=== PATIENT | female | born 1950 | race Asian ===

== ENCOUNTER 2017-03-26 06:28 | Day surgery (SDC) | payer OTHER ==
[~2017-03-26] VITALS: Ht 152.4 cm; Wt 59.0 kg
[~2017-03-26 06:28] MED LIST: CARBAMAZEPINE200 MG PO; ENALAPRIL MALEA20 MG PO; GLYBURIDE5 MG PO; METFORMIN HCL850 MG PO; METOPROLOL SUCC50 M2 PO; ZOCOR20 MG PO
[2017-03-26 06:45] VITALS: BP 168/76
[2017-03-26 10:02] VITALS: BP 152/72
== END 2017-03-26 10:15 | disposition home or self-care (01) ==
LOC: GI 06:28 → OR 07:30 → GI 10:15
PROVIDERS: Internal Medicine Gastroenterology
PROC: 0DBH8ZZ Excision of Cecum, Via Natural or Artificial Opening Endoscopic (ICD-10-PCS; principal; 2017-03-26 07:30)
PROC: 0DBH8ZZ Excision of Cecum, Via Natural or Artificial Opening Endoscopic (ICD-10-PCS; 2017-03-26 07:30)
DX: Z12.11 Encounter for screening for malignant neoplasm of colon (principal); D12.0 Benign neoplasm of cecum; I10 Essential (primary) hypertension; E11.9 Type 2 diabetes mellitus without complications; Z68.26 Body mass index [BMI] 26.0-26.9, adult
CPT/HCPCS: 45378; J1200; J1610; J2250; J2310; J3010; J3490

== ENCOUNTER 2019-03-05 10:01 | Emergency (ER) | payer OTHER ==
[~2019-03-05] VITALS: Ht 152.4 cm; Wt 60.8 kg
[2019-03-05 10:10] VITALS: Ht 152.4 cm; Wt 60.8 kg
[2019-03-05 12:48] VITALS: BP 176/68
== END 2019-03-05 12:48 | disposition home or self-care (01) ==
LOC: ED 10:01
DX: S93.402A Sprain of unspecified ligament of left ankle, initial encounter (principal); I10 Essential (primary) hypertension; E11.9 Type 2 diabetes mellitus without complications; E78.00 Pure hypercholesterolemia, unspecified; W01.0XXA Fall on same level from slipping, tripping and stumbling without subsequent striking against object, initial encounter; Y93.89 Activity, other specified; Y92.89 Other specified places as the place of occurrence of the external cause; Y99.8 Other external cause status

== ENCOUNTER 2019-08-30 08:04 | Inpatient (IN) | payer OTHER ==
[~2019-08-30] VITALS: Ht 160 cm; Wt 61.3 kg
[2019-08-30 09:16] LABS: ALKALINE PHOSPHATASE 106 U/L (46-116); ALT/SGPT 22 U/L (14-59); AST/SGOT 27 U/L (15-37); BILIRUBIN TOTAL 0.6 mg/dL (0.20-1.00); CALCIUM 8.6 mg/dL (8.5-10.1); CARBON DIOXIDE 21.9 mmol/L (21-32); CHLORIDE SERUM 101 mmol/L (98-107); CREATININE SERUM 0.9 mg/dL (0.6-1.0); GFR1 > 60 mL/min; GLUCOSE SERUM 174 mg/dL (74-106); POTASSIUM SERUM 5.5 mmol/L (3.5-5.1); SODIUM SERUM 133 mmol/L (136-145)
[2019-08-30 09:20] LABS: ALBUMIN 3.1 g/dL (3.4-5.0)
[2019-08-30 09:50] LABS: RED CELL DISTRIBUTION WIDTH 18.7 % (11.5-14.5)
[2019-08-30 09:51] LABS: PLATELET COUNT 194 x10^3mcL (130-400)
[2019-08-30 10:30] LABS: BAND NEUTROPHIL 6 % (0-10); BASOPHIL 0 % (0-2); METAMYELOCTE 1 % (0-2); MONOCYTE 6 % (0-7); SEGMENTED NEUTROPHILS 75 % (37-75)
[2019-08-30 10:31] LABS: PLATELET MORPHOLOGY GIANT PLATELET SEEN; ovalocyte/elliptocyte 1+; rbc morphology (normal/abnorm) ABNORMAL (NORMAL)
[2019-08-30 11:08] LABS: IRON 46 ug/dL (50-170); TOTAL IRON BINDING CAPACITY 422 ug/dL (250-450)
[2019-08-30 12:14] LABS: MAGNESIUM 1.8 mg/dL (1.8-2.4); PHOSPHOROUS 4.3 mg/dL (2.5-4.9)
[2019-08-30 12:21] LABS: CHOLESTEROL/HDL RATIO 2.2
[2019-08-30 13:26] VITALS: BP 158/66
[2019-08-30 13:40] VITALS: Ht 160 cm; Wt 61.3 kg
[2019-08-30 16:24] VITALS: BP 154/63
[2019-08-30 19:58] VITALS: BP 156/56
[2019-08-31 05:41] VITALS: BP 141/53
[2019-08-31 06:28] LABS: PLATELET COUNT 187 x10^3mcL (130-400)
[2019-08-31 06:55] LABS: CALCIUM 8.7 mg/dL (8.5-10.1); CARBON DIOXIDE 22.8 mmol/L (21-32); CREATININE SERUM 1.2 mg/dL (0.6-1.0); POTASSIUM SERUM 4.6 mmol/L (3.5-5.1)
[2019-08-31 07:21] VITALS: BP 134/60
[2019-08-31 07:59] LABS: RED CELL DISTRIBUTION WIDTH 19.4 % (11.5-14.5)
[2019-08-31 11:29] VITALS: BP 159/69
[2019-08-31 11:46] LABS: BAND NEUTROPHIL 5 % (0-10); MONOCYTE 7 % (0-7); SEGMENTED NEUTROPHILS 74 % (37-75)
[2019-08-31 11:47] LABS: rbc morphology (normal/abnorm) ABNORMAL (NORMAL)
[2019-08-31 11:48] LABS: ovalocyte/elliptocyte 1+
[2019-08-31 11:49] LABS: PLATELET MORPHOLOGY LARGE PLATELET SEEN
[2019-08-31 15:32] VITALS: BP 150/63
== END 2019-08-31 20:00 | disposition left against medical advice (07) | DRG 199 ==
LOC: ED 08:04 → DU 11:27
PROVIDERS: Emergency Medicine; ADMIT Internal Medicine
DX: I16.0 Hypertensive urgency (principal); I50.33 Acute on chronic diastolic (congestive) heart failure; E11.65 Type 2 diabetes mellitus with hyperglycemia; E87.1 Hypo-osmolality and hyponatremia; I11.0 Hypertensive heart disease with heart failure; E87.5 Hyperkalemia; D64.9 Anemia, unspecified; E78.00 Pure hypercholesterolemia, unspecified; E78.5 Hyperlipidemia, unspecified; Z53.29 Procedure and treatment not carried out because of patient's decision for other reasons; Z83.3 Family history of diabetes mellitus; Z82.49 Family history of ischemic heart disease and other diseases of the circulatory system; Z79.899 Other long term (current) drug therapy
CPT/HCPCS: 82962; 83880; G0378; J1940; J2270; J2405; J2916; Q0092

== ENCOUNTER 2020-05-13 18:51 | Inpatient (IN) | payer OTHER ==
[~2020-05-13] VITALS: Ht 152.4 cm; Wt 68.0 kg
[2020-05-13 19:17] VITALS: Ht 152.4 cm; Wt 68.0 kg
[2020-05-13 20:19] LABS: BASOPHIL % 0.4 % (0.2-1.3); PLATELET COUNT 150 x10^3mcL (179-408)
[2020-05-13 20:28] LABS: RED CELL DISTRIBUTION WIDTH 19.6 % (12.3-17.7)
[2020-05-13 20:45] LABS: BILIRUBIN TOTAL 0.39 mg/dL (0.20-1.00); CARBON DIOXIDE 17.2 mmol/L (21-32); CREATININE SERUM 1.4 mg/dL (0.6-1.0)
[2020-05-13 20:46] LABS: ALBUMIN 3.3 g/dL (3.4-5.0); TOTAL PROTEIN, SERUM 8.3 g/dL (6.4-8.2)
[2020-05-13 20:47] LABS: POTASSIUM SERUM 6.4 mmol/L (3.5-5.1)
[2020-05-13 20:54] LABS: ovalocyte/elliptocyte 1+; rbc morphology (normal/abnorm) ABNORMAL (NORMAL)
[2020-05-14 06:07] LABS: BASOPHIL % 0.6 % (0.2-1.3); PLATELET COUNT 139 x10^3mcL (179-408)
[2020-05-14 06:27] LABS: BILIRUBIN TOTAL 0.71 mg/dL (0.20-1.00); CALCIUM 9.5 mg/dL (8.5-10.1); CARBON DIOXIDE 20.6 mmol/L (21-32); CREATININE SERUM 1.3 mg/dL (0.6-1.0); MAGNESIUM 1.9 mg/dL (1.8-2.4)
[2020-05-14 06:31] LABS: ALBUMIN 3.2 g/dL (3.4-5.0)
[2020-05-14 06:33] LABS: POTASSIUM SERUM 5.7 mmol/L (3.5-5.1)
[2020-05-14 06:40] LABS: RED CELL DISTRIBUTION WIDTH 22.2 % (12.3-17.7)
[2020-05-14 10:34] LABS: rbc morphology (normal/abnorm) NORMAL (NORMAL)
[2020-05-14 13:33] LABS: IRON 27 ug/dL (50-170); TOTAL IRON BINDING CAPACITY 449 ug/dL (250-450)
[2020-05-15 04:44] VITALS: BP 159/78
[2020-05-15 05:28] VITALS: BP 159/78
[2020-05-15 08:33] VITALS: BP 148/60
[2020-05-15 11:52] VITALS: BP 147/54
[2020-05-15 15:15] LABS: BASOPHIL % 0.6 % (0.2-1.3); PLATELET COUNT 116 x10^3mcL (179-408); RED CELL DISTRIBUTION WIDTH 24.7 % (12.3-17.7)
[2020-05-15 15:22] LABS: BILIRUBIN TOTAL 0.6 mg/dL (0.20-1.00); CALCIUM 7.9 mg/dL (8.5-10.1); CARBON DIOXIDE 22.8 mmol/L (21-32); CREATININE SERUM 1.2 mg/dL (0.6-1.0); MAGNESIUM 1.4 mg/dL (1.8-2.4); POTASSIUM SERUM 4.5 mmol/L (3.5-5.1); TOTAL PROTEIN, SERUM 6.8 g/dL (6.4-8.2)
[2020-05-15 15:26] LABS: ALBUMIN 2.7 g/dL (3.4-5.0)
[2020-05-15 16:46] VITALS: BP 134/57
[2020-05-15 17:55] LABS: ovalocyte/elliptocyte 2+; rbc morphology (normal/abnorm) ABNORMAL (NORMAL)
[2020-05-15 17:56] LABS: tear drop cell (dacryocyte) 1+
[2020-05-15 20:43] VITALS: BP 143/61
[2020-05-16 05:27] VITALS: BP 138/66
[2020-05-16 06:24] LABS: BILIRUBIN TOTAL 0.71 mg/dL (0.20-1.00); CALCIUM 8.2 mg/dL (8.5-10.1); CARBON DIOXIDE 25.6 mmol/L (21-32); CREATININE SERUM 1.2 mg/dL (0.6-1.0); MAGNESIUM 1.4 mg/dL (1.8-2.4); POTASSIUM SERUM 3.6 mmol/L (3.5-5.1); TOTAL PROTEIN, SERUM 7.3 g/dL (6.4-8.2)
[2020-05-16 06:26] LABS: ALBUMIN 2.8 g/dL (3.4-5.0)
[2020-05-16 06:37] LABS: BASOPHIL % 0.4 % (0.2-1.3)
[2020-05-16 07:18] LABS: PLATELET COUNT 122 x10^3mcL (179-408); RED CELL DISTRIBUTION WIDTH 25.4 % (12.3-17.7)
[2020-05-16 09:00] VITALS: BP 127/67
[2020-05-16 13:16] LABS: rbc morphology (normal/abnorm) NORMAL (NORMAL)
[2020-05-16 13:30] VITALS: BP 126/57
[2020-05-16 17:26] VITALS: BP 138/88
[2020-05-16 22:31] VITALS: BP 150/61
[2020-05-17 06:20] VITALS: BP 150/55
[2020-05-17 07:31] VITALS: BP 139/59
[2020-05-17 07:39] LABS: BASOPHIL % 0.7 % (0.2-1.3); PLATELET COUNT 139 x10^3mcL (179-408)
[2020-05-17 08:29] LABS: BILIRUBIN TOTAL 0.55 mg/dL (0.20-1.00); CALCIUM 8.5 mg/dL (8.5-10.1); CARBON DIOXIDE 24.9 mmol/L (21-32); CREATININE SERUM 1.2 mg/dL (0.6-1.0); MAGNESIUM 2.2 mg/dL (1.8-2.4); POTASSIUM SERUM 3.6 mmol/L (3.5-5.1); RED CELL DISTRIBUTION WIDTH 25.7 % (12.3-17.7); TOTAL PROTEIN, SERUM 7.7 g/dL (6.4-8.2)
[2020-05-17 08:33] LABS: rbc morphology (normal/abnorm) NORMAL (NORMAL)
[2020-05-17 12:27] VITALS: BP 152/63
[2020-05-17 16:57] VITALS: BP 157/69
[2020-05-17 21:21] VITALS: BP 148/49
[2020-05-18 05:50] VITALS: BP 158/67
[2020-05-18 07:37] LABS: BASOPHIL % 0.7 % (0.2-1.3); PLATELET COUNT 138 x10^3mcL (179-408)
[2020-05-18 07:54] LABS: RED CELL DISTRIBUTION WIDTH 25.1 % (12.3-17.7)
[2020-05-18 08:10] LABS: ALKALINE PHOSPHATASE 107 U/L (46-116); ALT/SGPT 15 U/L (14-59); AST/SGOT 26 U/L (15-37); BILIRUBIN TOTAL 0.6 mg/dL (0.20-1.00); CALCIUM 7.9 mg/dL (8.5-10.1); CARBON DIOXIDE 23.4 mmol/L (21-32); CHLORIDE SERUM 103 mmol/L (98-107); CREATININE SERUM 0.9 mg/dL (0.6-1.0); GFR1 > 60 mL/min; GLUCOSE SERUM 116 mg/dL (74-106); POTASSIUM SERUM 3.3 mmol/L (3.5-5.1); SODIUM SERUM 139 mmol/L (136-145); TOTAL PROTEIN, SERUM 7.2 g/dL (6.4-8.2)
[2020-05-18 08:16] LABS: ALBUMIN 2.9 g/dL (3.4-5.0)
[2020-05-18 08:59] VITALS: BP 162/84
[2020-05-18 12:47] LABS: rbc morphology (normal/abnorm) NORMAL (NORMAL)
[2020-05-18] MEDS ORDERED: FER300 PO (14:01)
[2020-05-18] MEDS ORDERED: PROTONIX TR40 M1 PO (14:01)
== END 2020-05-18 17:09 | disposition home or self-care (01) | DRG 194 ==
LOC: ED 18:51 → DU 23:09
PROVIDERS: Hospitalist; Internal Medicine Gastroenterology; ADMIT Internal Medicine; ATTEND Internal Medicine
PROC: 30233N1 Transfusion of Nonautologous Red Blood Cells into Peripheral Vein, Percutaneous Approach (ICD-10-PCS; principal; 2020-05-13)
PROC: 0DB78ZX Excision of Stomach, Pylorus, Via Natural or Artificial Opening Endoscopic, Diagnostic (ICD-10-PCS; 2020-05-16 11:15)
PROC: 0DJD8ZZ Inspection of Lower Intestinal Tract, Via Natural or Artificial Opening Endoscopic (ICD-10-PCS; 2020-05-17)
DX: I13.0 Hypertensive heart and chronic kidney disease with heart failure and stage 1 through stage 4 chronic kidney disease, or unspecified chronic kidney disease (principal); N17.9 Acute kidney failure, unspecified; E87.5 Hyperkalemia; E11.9 Type 2 diabetes mellitus without complications; D50.9 Iron deficiency anemia, unspecified; E78.5 Hyperlipidemia, unspecified; I50.9 Heart failure, unspecified; K21.9 Gastro-esophageal reflux disease without esophagitis; Z20.828 Contact with and (suspected) exposure to other viral communicable diseases; N18.9 Chronic kidney disease, unspecified; Z83.3 Family history of diabetes mellitus; Z82.49 Family history of ischemic heart disease and other diseases of the circulatory system
CPT/HCPCS: 43235; 45378; 82962; 83880; C9113; G0378; J1200; J1610; J1815; J1940; J2250; J2310; J2405; J2916; J3010; J3420; J3475; J3490; J7030; J7040; P9016